=== PATIENT | male | born 1950 | race Caucasian/White ===

== ENCOUNTER 2018-07-23 12:58 | Inpatient (IN) | payer MEDICARE, BC ==
[~2018-07-23] VITALS: Ht 180.3 cm; Wt 111.6 kg
--- NOTE | ~2018-07-23 | CN ---
PATIENT NAME:GABE MENDOZA MEDICAL RECORD: [id number] : 48 LOCATION:[facility].2301 ADMIT DATE: 07/23/18 ACCOUNT: [id number] CONSULTING PHYSICIAN: COLTON ROPER MD REFERRING PHYSICIAN: ASUNCION CALIX MD DATE OF CONSULTATION: 07/24/2018 CONSULT REQUESTING PHYSICIAN: Dr. Asuncion Calix. REASON FOR CONSULTATION: Bilateral pneumonia and pulmonary edema. HISTORY OF PRESENT ILLNESS: Mr. Mendoza is a 67-year-old gentleman who was transferred from [place]. The patient has CVA. The patient is noncommunicative. There is no family member available to talk to. The patient was transferred yesterday from [place] after cardiopulmonary arrest. The patient was resuscitated, but the patient was not intubated. He has bilateral infiltrate and also he was fluid overloaded and edema. Now, the history is taken mainly by reviewing the patient's note and talking to the nursing staff. REVIEW OF SYSTEMS: Mainly in the history of present illness. The detail is not obtainable. PAST MEDICAL HISTORY: 1. End-stage renal disease, on hemodialysis. 2. Coronary artery disease. 3. Diabetes mellitus. 4. Code blue on 07/17/2018. 5. History of pneumonia. ALLERGIES: There are no known drug allergies. MEDICATIONS: On [place] is reviewed. PERSONAL AND SOCIAL HISTORY: The patient's drinking and smoking history is not obtainable. FAMILY HISTORY: Significant for hypertension. PHYSICAL EXAMINATION: GENERAL: The patient is lying comfortably in bed. He is not in acute distress. VITAL SIGNS: The blood pressure is 131/43. During the dialysis the blood pressure fell to 87-90. Temperature 97.9, and SpO2 is 95% on 9 liters oxymizer. HEENT: Conjunctivae are pale. Sclerae are not icteric. NECK: Supple, no JVD. CHEST: There are bilateral crackles. No wheezing. HEART: Rate and rhythm regular, normal sound, no murmur. ABDOMEN: Soft, bowel sounds present. No hepatosplenomegaly. RECTAL: Deferred. EXTREMITIES: No cyanosis, no clubbing. There is 1+ pedal edema. CENTRAL NERVOUS SYSTEM: The patient is awake, but he is noncommunicative. IMAGING: CT scan of the head: There is hypoattenuation and loss of nj/white differentiation in the left insula. No evidence of intracranial hemorrhage. CHEST RADIOGRAPH: There is a left subclavian line in place. There are hazy CONSULT REPORT [id number] REJI,GABE opacities bilaterally. There is small left pleural effusion. OTHER LABORATORY DATA: CBC: WBC is 14.1, hemoglobin 11.5, hematocrit 35.4, the platelet count is 261. Chemistry: Sodium is 141, potassium is 5.8, BUN is 83, creatinine is 9.7. IMPRESSION: 1. Acute hypoxic respiratory failure secondary to bilateral pneumonia and pulmonary edema. 2. Leukocytosis. 3. Status post cardiopulmonary arrest, possible aspiration during the resuscitation on 07/17/2018. 4. Status post CVA. 5. End-stage renal disease, on hemodialysis. 6. Pulmonary edema and fluid overload, possible congestive heart failure. RECOMMENDATION: 1. Adjust the dose of meropenem. 2. Levaquin. 3. Check the ammonia level. 4. Check the ABG. 5. Hold the blood pressure medication when the patient is hypotensive. 6. Discuss with Dr. Calix. He might transfer the patient to [facility] as we do not have any neurology service. TRANSINT:[id number] Voice Confirmation ID: [id number] DOCUMENT ID: [id number] COLTON ROPER MD CC: [id number] DICTATION DATE: 07/24/18 1312 WASHROOM CLEANER: 07/24/18 1330 ADM IN [address] [id number] [place] [address]
--- NOTE | ~2018-07-23 | EC ---
PATIENT:GABE MENDOZA DATE OF SERVICE: 07/23/18 SEX: M MEDICAL RECORD: [id number] DATE OF : 48 LOCATION:[facility] D230 AGE OF PATIENT: 67 ADMISSION DATE: 07/23/18 REFERRING PHYSICIAN: INTERPRETING PHYSICIAN: POLI HENAO MD ECHOCARDIOGRAM REPORT ECHO CHARGES 4 ECHO COMPLETE Date: 07/24/18 CLINICAL DIAGNOSIS: CVA/CARDIAC ARREST ECHOCARDIOGRAPHIC MEASUREMENTS (adult normal given) AC root (d.<3.7cm) 3.9 cm LV Septum d (<1.2 cm> 1.7 cm Valve Excursion 1.9 cm LV Septum (systole) 2.6 cm Left Atria (s.<4.0cm> 3.0 cm LVPW d(<1.2cm) 1.5 cm RV (d.<2.3cm) 2.1 cm LVPW (sytole) 2.3 cm LV diastole(<5.6CM) 3.4 cm MV E-F(>70mm/sec) cm LV systole 1.8 cm LVOT Diameter 2.0 cm MV exc.(>10mm) cm Est.ejection fraction (50-75%) % DOPPLER: LVIT cm/sec A 58.0 cm/sec E 96.0 cm/sec LA cm/sec RVSP 39.3 mmHg LVOT 179 cm/sec AOP1/2T m/s Asc. Ao 199 cm/sec RVOT 184 cm/sec RA cm/sec PA 203 cm/sec AV Gradient Peak 16.0 mmHg AV Mean 9.5 mmHg AV Area 1.8 cm MV Gradient Peak 6.0 mmHg MV Mean 2.4 mmHg MV Area cm COMMENTS: Layout Mechanic: Chantelle MCCLELLANOE [employer] Supervisor: 3 Dr. Lawler TAPE# PACS Pericardial Effusion N DATE OF SERVICE: 07/24/2018 FINDINGS: 1. Left ventricular chamber size is within normal limits. Left ventricular systolic function is mild to moderately depressed. Overall ejection fraction is estimated at 35% to 40%. There is mild global hypokinesis throughout all segments with no discrete wall motion abnormalities present. 2. Left atrium, right atrium, and right ventricle chamber sizes are within normal limit. 3. Valvular structures have normal structure and motion. ECHOCARDIOGRAM REPORT [id number] GABE MENDOZA 4. Doppler interrogation only reveals trace tricuspid regurgitation. No other valvular insufficiency or stenosis. Pulmonary systolic pressure is estimated at 39 mmHg. 5. No cardiac source of neurologic emboli. TRANSINT:[id number] Voice Confirmation ID: [id number] DOCUMENT ID: [id number] POLI HENAO MD at 1729 CC: [id number] DICTATION DATE: 07/24/18 1549 DIESEL POWERPLANT SUPERVISOR: 07/24/18 1637 DIS IN 07/24/18 [facility] [address] [id number]
[2018-07-23] MEDS ORDERED: ACETAMINOPHEN500 M1 PO (14:19)
[2018-07-23] MEDS ORDERED: BAYER CHEWABLE81 MG PO (14:20)
[2018-07-23] MEDS ORDERED: PHOSLO667 MG PO (14:22)
[2018-07-23] MEDS ORDERED: SURFAK240 MG PO (14:23)
[2018-07-23] MEDS ORDERED: DILAUDID2 MG PO (14:24)
[2018-07-23] MEDS ORDERED: LOVENOX30 MG/0.3 SC (14:24)
[2018-07-23] MEDS ORDERED: LANTUS SC (14:32)
[2018-07-23] MEDS ORDERED: IPRAT-ALBUT 0.5-3 ML UPD (14:33)
[2018-07-23] MEDS ORDERED: MERREM 500 MG/500 MG IV (14:34)
[2018-07-23] MEDS ORDERED: TOPROL XL50 MG PO (14:35)
[2018-07-23] MEDS ORDERED: NIFEDIPINE ER PO (14:38)
[2018-07-23] MEDS ORDERED: ONDANSETRON4 MG/2 M3 IV (14:38)
[2018-07-23] MEDS ORDERED: SODIUM BICARBO650 MG PO (14:39)
[2018-07-23] MEDS ORDERED: VANCOMYCIN 1 GM/1 G1 IV (14:40)
[2018-07-23 15:42] LABS: BASOPHILS 0.1 % (0-2); EOSINOPHILS 1.3 % (0-7); HEMATOCRIT 29.7 % (42.0-54.0); HEMOGLOBIN 9.7 g/dL (13.5-17.5); LYMPHOCYTES 10.5 % (15-50); MCH 32.1 pg (26.0-34.0); MCHC 32.7 g/dL (31.0-37.0); MCV 98.3 fL (80.0-100.0); MEAN PLATELET VOLUME 10.1 fL (7.4-10.4); MONOCYTES 3.6 % (2-11); NEUTROPHILS 83.5 % (40-80); PLATELET COUNT 236 10x3/uL (130-400); RBC 3.02 10x6/uL (4.20-6.10); RDW 13.5 % (11.5-14.5); WBC 13.5 10x3/uL (4.8-10.8)
[2018-07-23 16:04] LABS: ANION GAP 27.2 mmol/L (8-16); CALCIUM 8.8 mg/dL (8.5-10.1); CARBON DIOXIDE 24.9 mmol/L (21.0-32.0); CREATININE - SERUM 14.1 mg/dL (0.6-1.3)
[2018-07-23 16:07] LABS: POTASSIUM - SERUM 6.1 mmol/L (3.5-5.1)
[2018-07-23 16:19] VITALS: BP 126/76
[2018-07-23 20:40] VITALS: BP 137/64
[2018-07-23 23:00] VITALS: BP 136/40
[2018-07-24] VITALS (11 sets, daily range): BP systolic 99–155; BP diastolic 38–64; Ht 180.3 cm; Wt 111.6 kg
[2018-07-24 05:05] LABS: BASOPHILS 0.2 % (0-2); EOSINOPHILS 0.2 % (0-7); HEMATOCRIT 35.4 % (42.0-54.0); HEMOGLOBIN 11.5 g/dL (13.5-17.5); IMMATURE GRANULOCYTES 1.2 % (0-5); LYMPHOCYTES 9.7 % (15-50); MCH 32.4 pg (26.0-34.0); MCHC 32.5 g/dL (31.0-37.0); MCV 99.7 fL (80.0-100.0); MEAN PLATELET VOLUME 10.9 fL (7.4-10.4); MONOCYTES 3.1 % (2-11); NEUTROPHILS 85.6 % (40-80); PLATELET COUNT 261 10x3/uL (130-400); RBC 3.55 10x6/uL (4.20-6.10); RDW 13.8 % (11.5-14.5); WBC 14.1 10x3/uL (4.8-10.8)
[2018-07-24 05:43] LABS: ANION GAP 26.2 mmol/L (8-16); CARBON DIOXIDE 22.6 mmol/L (21.0-32.0); POTASSIUM - SERUM 5.8 mmol/L (3.5-5.1); VANCOMYCIN - RANDOM 21.5 ug/mL (10.0-20.0)
[2018-07-24 05:47] LABS: CREATININE - SERUM 9.7 mg/dL (0.6-1.3)
[2018-07-24 05:48] LABS: PHOSPHOROUS 12.8 mg/dL (2.5-4.9)
[2018-07-24 13:52] LABS: CKMB 16.1 U/L (0.0-3.6)
[2018-07-24 13:53] LABS: CREATINE KINASE 1658 UL (21-232)
[2018-07-24 13:58] LABS: TROPONIN-I 0.262 ng/mL (0.000-0.060)
== END 2018-07-24 14:17 | DRG 291 ==
LOC: D.M2 12:58 → D.ICU 14:15
PROVIDERS: Internal Medicine Interventional Cardiology; Internal Medicine Nephrology
DX: I11.0 Hypertensive heart disease with heart failure (principal); J18.9 Pneumonia, unspecified organism; J96.01 Acute respiratory failure with hypoxia; N18.6 End stage renal disease; I63.9 Cerebral infarction, unspecified; J81.1 Chronic pulmonary edema; E87.5 Hyperkalemia; I12.0 Hypertensive chronic kidney disease with stage 5 chronic kidney disease or end stage renal disease; E11.22 Type 2 diabetes mellitus with diabetic chronic kidney disease; Z99.2 Dependence on renal dialysis; E78.5 Hyperlipidemia, unspecified; E66.9 Obesity, unspecified; I25.10 Atherosclerotic heart disease of native coronary artery without angina pectoris; E87.70 Fluid overload, unspecified; I46.9 Cardiac arrest, cause unspecified; I50.9 Heart failure, unspecified